=== PATIENT | male | born 1945 | race Caucasian/White ===

== ENCOUNTER → 2016-12-12 | Outpatient (CLI) | payer BC, MEDICARE ==
[~2016-12-12] MED LIST: MULTI-DAY VITA1 EACH PO; PERCOCET 5/31 TABLET PO
== END | disposition home or self-care (01) ==
LOC: CDC 09:58
DX: R00.1 Bradycardia, unspecified (principal); I44.0 Atrioventricular block, first degree
CPT/HCPCS: 93000

== ENCOUNTER → 2017-06-25 | Outpatient (CLI) | payer BC, MEDICARE | END | disposition home or self-care (01) | LOC: CDC 09:10 | DX: R00.1 Bradycardia, unspecified (principal); I44.0 Atrioventricular block, first degree | CPT/HCPCS: 93000 ==

== ENCOUNTER 2017-07-10 10:31 | Day surgery (SDC) | payer BC, OTHER ==
[~2017-07-10] VITALS: Ht 170.2 cm; Wt 70.3 kg
[~2017-07-10 10:31] MED LIST changes: +FLOMAX0.4 MG PO; +LUMIGAN 0.50 DROP/22 BOTH EYES; +TIMOPTIC-0100 DROP/1 BOTH EYES
[2017-07-10 10:53] VITALS: BP 174/74
[2017-07-10] MEDS ORDERED: COLACE100 MG PO (14:40)
[2017-07-10] MEDS ORDERED: NORCO 5/3251 TABLET PO (14:40)
[2017-07-10 16:30] VITALS: BP 186/77
[2017-07-10 17:30] VITALS: BP 158/72
[2017-07-10 17:50] VITALS: BP 148/69
== END 2017-07-10 18:15 | disposition home or self-care (01) ==
LOC: SDC 10:31
PROC: 0YU50JZ Supplement Right Inguinal Region with Synthetic Substitute, Open Approach (ICD-10-PCS; principal; 2017-07-10)
DX: K40.90 Unilateral inguinal hernia, without obstruction or gangrene, not specified as recurrent (principal); C61 Malignant neoplasm of prostate; M85.80 Other specified disorders of bone density and structure, unspecified site
CPT/HCPCS: C1781; J0690; J1100; J1170; J2405; J3010